=== PATIENT | female | born 2000 | race Caucasian/White ===

== ENCOUNTER 2019-12-29 22:01 | Emergency (ER) | payer OTHER ==
--- NOTE | 2019-12-30 03:21 | ED ---
Upper Extremity Pain - HPI Summary HPI Summary: Patient is a 19 y/o F presenting to [facility] with complaints of right elbow pain secondary to fall. She states that she had tripped over a step and fell. She denies head injury and LOC. Patient notes occasional radiation of pain down her arm to her hand. She also states that her right shoulder is sore. Patient has been taking Tylenol throughout the day. Fall occurred 12/29/19 towards the morning/early afternoon but she did not get evaluated until later due to exams that she had. She went to her [facility] and was advised to come to ED. Patient notes that keeping her arm elevated is more comfortable. Patient is right-handed. Home medications and allergies are reviewed. - History of Current Complaint Chief Complaint: EDExtremityUpper Stated Complaint: ELBOW PAIN PER PT Time Seen by Provider: 12/30/19 02:18 Hx Obtained From: Patient Mechanism Of Injury: Fall From A Standing Position Onset/Duration: Started Days Ago, Still Present Timing: Constant, Lasting Hours Severity Currently: Moderate Pain Location: Shoulder, Elbow Alleviating Factor(s): Elevation Associated Signs & Symptoms: Positive: Other - negative - head injury, LOC - Allergies/Home Medications Allergies/Adverse Reactions: Allergies Allergy/AdvReac Type Severity Reaction Status Date / Time No Known Allergies Allergy Verified 12/29/19 22:08 Home Medications: Home Medications NK [No Home Medications Reported] 12/30/19 [History Confirmed 12/30/19] PMH/Surg Hx/FS Hx/Imm Hx Endocrine/Hematology History: Denies: Hx Diabetes Cardiovascular History: Denies: Hx Hypertension Infectious Disease History: No Infectious Disease History: Denies: Traveled Outside the [place] in Last 30 Days - Family History Known Family History: Negative: Diabetes - Social History Alcohol Use: None Substance Use Type: Reports: None Smoking Status (MU): Never Smoked Tobacco Review of Systems Positive: Other - fall, right elbow and shoulder pain Neurological/Mental Status: Other - negative - head injury, LOC All Other Systems Reviewed And Are Negative: Yes Physical Exam - Summary Physical Exam Summary: General: Well-developed, Well-nourished female. No acute distress. HEENT: Normocephalic, Atraumatic. Eyes: Conjuctiva normal, PERRL. Oropharynx: Clear, mucous membranes moist, (-) exudates. Neck: Soft, FROM, (-) lymphadenopathy, (-) thyromegaly, (-) JVD. Cardiovascular: Normal sinus rhythm, (-) murmur. Lungs: Clear to auscultation bilaterally (-) wheezes, (-) rales, (-) rhonchi. Abdomen: Soft, non-tender, non-distended, (-) organomegaly, normal bowel sounds. Back: (-) CVA tenderness Extremities: Bruise distal to right elbow at the ulnar aspect that is 2 cm by 3 cm in size. The elbow is tender and swollen. FROM of elbow. Normal strength, sensation, pulses distally Skin: Warm, dry, (-) rash. Neuro: Alert and oriented x3, moves all extremities equally. No ataxia. No gait disturbance. No sensory deficit. Normal strength, normal sensation. Psychiatric: Mood normal, affect normal. Triage Information Reviewed: Yes Vital Signs On Initial Exam: Initial Vitals Temp Pulse Resp BP Pulse Ox 99 F 82 16 135/85 98 12/29/19 22:06 12/29/19 22:06 12/29/19 22:06 12/29/19 22:06 12/29/19 22:06 Vital Signs Reviewed: Yes Procedures - Sedation Patient Received Moderate/Deep Sedation with Procedure: No Diagnostics - Vital Signs Vital Signs Temp Pulse Resp BP Pulse Ox 12/30/19 02:27 99.0 F 12/30/19 02:16 66 98 12/30/19 02:15 67 126/79 97 12/30/19 00:25 98.7 F 63 14 110/66 97 12/29/19 22:06 99 F 82 16 135/85 98 - Laboratory Lab Statement: Any lab studies that have been ordered have been reviewed, and results considered in the medical decision making process. - Radiology RIGHT ELBOW X-RAY Radiology Interpretation Completed By: ED Physician Summary of Radiographic Findings: NO FRACTURE, NO DISLOCATION, PENDING OFFICIAL REPORT. LEFT ELBOW X-RAY Radiology Interpretation Completed By: ED Physician Summary of Radiographic Findings: NO FRACTURE, NO DISLOCATION, PENDING OFFICIAL REPORT. Course/Dx - Course Course Of Treatment: 19-year-old female presents with right elbow pain. She states she tripped today and fell. Has had elbow pain since then. Feels better if she keeps arm flexed. no tingling or numbness or weakness distally. She can extend it with moderate pain. Denies head trauma or loss of consciousness. Denies any other injury. On physical exam she is tender on her proximal radial head. Patient has normal strength sensation pulses and capillary refill distally. Full range of motion. X-ray demonstrates no obvious fracture or dislocation. Patient placed in a sling. Advised ibuprofen , ice, rest. Follow-up with PCP or orthopedics. Follow up sooner for any worsening symptoms. - Diagnoses Provider Diagnoses: Right elbow pain, Fall Discharge ED - Sign-Out/Discharge Documenting (check all that apply): Patient Departure - discharge - Discharge Plan Condition: Stable Disposition: HOME Patient Education Materials: Elbow Sprain (ED) Referrals: [facility] [Outside] - 3 Days Additional Instructions: PLEASE RETURN TO ED FOR ANY NEW OR WORSENING SYMPTOMS. PLEASE FOLLOWUP WITH YOUR PRIMARY CARE PHYSICIAN WITHIN THREE DAYS. - Billing Disposition and Condition Condition: STABLE Disposition: Home - Attestation Statements Document Initiated by Ducibe: Yes Documenting Scribe: SUNSHINE PARMAR Provider For Whom Ducibe is Documenting (Include Credential): AAKASH MOTT MD Scribe Attestation: SUNSHINE Carbajal, scribed for AAKASH MOTT MD on 12/30/19 at 2009. Scribe Documentation Reviewed: Yes Provider Attestation: The documentation as recorded by the SUNSHINE vaughn accurately reflects the service I personally performed and the decisions made by , AAKASH MOTT MD Status of Scribe Document: Viewed
[2019-12-30 03:40] VITALS: BP 114/77
== END 2019-12-30 03:30 | disposition home or self-care (01) ==
LOC: ED 22:01
DX: M25.521 Pain in right elbow (principal); Z04.3 Encounter for examination and observation following other accident
CPT/HCPCS: 99282